=== PATIENT | male | born 2000 | race Hispanic/Latino ===

== ENCOUNTER 2023-03-24 21:58 | Emergency (ER) | payer BC, OTHER ==
[~2023-03-24] VITALS: Ht 182.9 cm; Wt 70.8 kg
[2023-03-24 22:06] VITALS: BP 110/65
== END 2023-03-24 23:39 | disposition home or self-care (01) ==
LOC: EDH 21:58
DX: K29.70 Gastritis, unspecified, without bleeding (principal)
CPT/HCPCS: 99281